=== PATIENT | male | born 1955 | race Caucasian/White ===

== ENCOUNTER 2017-08-10 17:53 | Inpatient (IN) | payer BC ==
[2017-08-10] MEDS ORDERED: ONDANSETRON 4 MG/2 ML VIAL IVP STA (18:54)
[2017-08-10] MEDS ORDERED: HYDROmorphone 1 MG/ML 1 ML SYRINGE IVP STA (18:54)
[2017-08-10] MEDS ORDERED: SODIUM CHLORIDE 0.9% 2,000 ML IV STA (18:54)
[2017-08-10] MEDS ORDERED: RX INFO: IV CONTRAST WAS GIVEN 1 EACH MISC MISCELLANE PRN (18:54)
[2017-08-10 19:16] LABS: Basophils # (A) 0.1 k/uL (0-0.2); Basophils % (A) 1 %; CH 31.9; CHCM 34.5; Eosinophils # (A) 0.3 k/uL (0-0.7); Eosinophils % (A) 2 %; HCT 43.8 % (39.0-53.0); HDW 2.52; HGB 14.9 gm/dL (13.0-17.5); Luc # (Auto) 0.17; Luc % (Auto) 2; Lymphocytes # (A) 2.4 k/uL (1.0-4.8); Lymphocytes % (A) 23 %; MCH 31.7 pg (25.0-35.0); MCHC 34.1 g/dL (31.0-37.0); MCV 92.9 fL (80.0-100.0); Mean Platelet Volume 6.5; Monocytes # (A) 0.7 k/uL (0-1.0); Monocytes % (A) 7 %; Neutrophils # (A) 6.8 k/uL (1.3-7.7); Neutrophils % (A) 65 %; RBC 4.71 m/uL (4.30-5.90); RDW 12.7 % (11.5-15.5); WBC 10.5 k/uL (3.8-10.6); WBC (Perox) 10.47
--- NOTE | 2017-08-10 19:16 | ED ---
Abdominal Pain HPI <Eldon Sherman - Last Filed: 08/10/17 19:59> - General Source: patient Mode of arrival: ambulatory Limitations: no limitations <Jacqueline Chaidez - Last Filed: 08/10/17 20:24> - General Chief Complaint: Abdominal Pain Stated Complaint: Abd Pain Time Seen by Provider: 08/10/17 18:30 - History of Present Illness Initial Comments: Is a 62-year-old male presents emergency department after being seen by his primary care provider earlier today and was told he had abnormal lab work. He' s been having some right lower quadrant abdominal pain for the past 2 days. Patient relates that he's had no nausea or vomiting. Denies any abnormal bowel movements. Denies any urinary symptoms. Patient was told that he needed to come to the emergency department due to abnormal lab values but does not know exactly what could've caused this. Patient states he is felt chilled denies any specific fevers. Denies any upper respiratory symptoms. Surgical history includes cholecystectomy. (Jacqueline Chaidez) - Related Data Home Medications Medication Instructions Recorded Confirmed Budesonide-Formot 160-4.5 Mcg 2 puff INHALATION RT-BID 04/29/14 08/10/17 [Symbicort 160-4.5 Mcg Inhaler] Albuterol Nebulized [Ventolin 2.5 mg INHALATION RT-QID PRN 12/25/15 08/10/17 Nebulized] Ibuprofen [Motrin] 800 mg PO Q8H PRN 01/25/16 08/10/17 Albuterol Inhaler [Ventolin Hfa 1 - 2 puff INHALATION RT-QID PRN 08/10/17 Inhaler] Ipratropium/Albuterol Sulfate 1 puff INHALATION RT-QID PRN 08/10/17 08/10/17 [Combivent Respimat Inhaler] Allergies Allergy/AdvReac Type Severity Reaction Status Date / Time No Known Allergies Allergy Verified 08/10/17 18:48 Review of Systems ROS Other: All systems not noted in ROS Statement are negative. <Eldon Sherman - Last Filed: 08/10/17 19:59> ROS Other: All systems not noted in ROS Statement are negative. <Jacqueline Chaidez - Last Filed: 08/10/17 20:24> ROS Statement: Those systems with pertinent positive or pertinent negative responses have been documented in the HPI. Past Medical History Past Medical History: Asthma Additional Past Medical History / Comment(s): pancreatitis History of Any Multi-Drug Resistant Organisms: None Reported Past Surgical History: Cholecystectomy, Tonsillectomy Past Anesthesia/Blood Transfusion Reactions: No Reported Reaction Past Psychological History: Depression Smoking Status: Current every day smoker Past Alcohol Use History: Occasional Past Drug Use History: None Reported - Past Family History Father Family Medical History: Cancer, Myocardial Infarction ([place]) Additional Family Medical History / Comment(s): STOMACH <Jacqueline Chaidez - Last Filed: 08/10/17 20:24> General Exam <Eldon Sherman - Last Filed: 08/10/17 19:59> Limitations: no limitations General appearance: alert, in no apparent distress Head exam: Present: atraumatic, normocephalic, normal inspection Eye exam: Present: normal appearance, PERRL, EOMI. Absent: scleral icterus, conjunctival injection, periorbital swelling ENT exam: Present: normal exam, mucous membranes moist Neck exam: Present: normal inspection. Absent: tenderness, meningismus, lymphadenopathy Respiratory exam: Present: normal lung sounds bilaterally. Absent: respiratory distress, wheezes, rales, rhonchi, stridor Cardiovascular Exam: Present: regular rate, normal rhythm, normal heart sounds. Absent: systolic murmur, diastolic murmur, rubs, gallop, clicks GI/Abdominal exam: Present: soft, tenderness (Right lower quadrant and right upper quadrant tenderness.), normal bowel sounds. Absent: distended, guarding, rebound, rigid Extremities exam: Present: normal inspection, full ROM, normal capillary refill. Absent: tenderness, pedal edema, joint swelling, calf tenderness Back exam: Present: normal inspection Neurological exam: Present: alert, oriented X3, CN II-XII intact Psychiatric exam: Present: normal affect, normal mood Skin exam: Present: warm, dry, intact, normal color. Absent: rash <Jacqueline Chaidez - Last Filed: 08/10/17 20:24> - General Exam Comments Initial Comments: Pleasant 62-year-old male. No acute distress. (Jacqueline Chaidez) Medical Decision Making - Lab Data Result diagrams: 08/10/17 19:00 08/10/17 19:00 <Eldon Sherman - Last Filed: 08/10/17 19:59> - Lab Data Result diagrams: 08/10/17 19:00 08/10/17 19:00 - Radiology Data Radiology results: report reviewed <Jacqueline Chaidez - Last Filed: 08/10/17 20:24> - Medical Decision Making 62-year-old male with a complaint of abdominal pain. Labs drawn and sent to the hospital from the office shows an elevated lipase at 3126. Amylase here is 397. BUN/creatinine GFR normal. Glucose 94. White count 10. Liver enzymes normal. Patient had a CAT scan done today final impression per radiologist is clearing of minimal inflammatory changes of the pancreatic head as noted on previous study. Patient be admitted to the hospital for evaluation for acute pancreatitis. I spoke with Vane taking call for Dr. Hull. Dr. Sherman (Eldon Sherman) [id number] male presents is of abdominal pain. Had lab work done earlier today and was told he had elevated liver but does not know exactly what. Patient's amylase and lipase are simply elevated. Lipase at 4500 and amylase 397. Patient kidney function and liver function are normal. He does have history of cholecystectomy. Denies any specific alcohol use, last beer was 2 weeks ago. Patient did have a CAT scan with contrast due to the right lower quadrant pain. The CAT scan was reviewed and negative for any significant acute process. Discussed case with Dr. Sherman. Patient admitted for acute pancreatitis given IV hydration, pain medicine. Patient will remain nothing by mouth. (Jacqueline Chaidez) - Lab Data Lab Results 08/10/17 08/10/17 08/10/17 Range/Units 19:00 19:00 19:00 WBC 10.5 (3.8-10.6) k/uL RBC 4.71 (4.30-5.90) m/uL Hgb 14.9 (13.0-17.5) gm/dL Hct 43.8 (39.0-53.0) % MCV 92.9 (80.0-100.0) fL MCH 31.7 (25.0-35.0) pg MCHC 34.1 (31.0-37.0) g/dL RDW 12.7 (11.5-15.5) % Plt Count 255 (150-450) k/uL Neutrophils % 65 % Lymphocytes % 23 % Monocytes % 7 % Eosinophils % 2 % Basophils % 1 % Neutrophils # 6.8 (1.3-7.7) k/uL Lymphocytes # 2.4 (1.0-4.8) k/uL Monocytes # 0.7 (0-1.0) k/uL Eosinophils # 0.3 (0-0.7) k/uL Basophils # 0.1 (0-0.2) k/uL PT (9.0-12.0) sec INR (<1.2) APTT (22.0-30.0) sec Sodium 138 (137-145) mmol/L Potassium 4.3 (3.5-5.1) mmol/L Chloride 106 (98-107) mmol/L Carbon Dioxide 23 (22-30) mmol/L Anion Gap 9 mmol/L BUN 18 (9-20) mg/dL Creatinine 0.90 (0.66-1.25) mg/dL Est GFR (MDRD) Af Amer >60 (>60 ml/min/1.73 sqM) Est GFR (MDRD) Non-Af >60 (>60 ml/min/1.73 sqM) Glucose 94 (74-99) mg/dL Plasma Lactic Acid Gerry 0.7 (0.7-2.0) mmol/L Calcium 9.2 (8.4-10.2) mg/dL Total Bilirubin 0.7 (0.2-1.3) mg/dL AST 20 (17-59) U/L ALT 33 (21-72) U/L Alkaline Phosphatase 71 (38-126) U/L Total Protein 6.1 L (6.3-8.2) g/dL Albumin 3.7 (3.5-5.0) g/dL Amylase 397 H* (30-110) U/L Lipase 4500 H (23-300) U/L Blood Type Blood Type Recheck Antibody Screen Spec Expiration Date 08/10/17 08/10/17 Range/Units 19:00 19:00 WBC (3.8-10.6) k/uL RBC (4.30-5.90) m/uL Hgb (13.0-17.5) gm/dL Hct (39.0-53.0) % MCV (80.0-100.0) fL MCH (25.0-35.0) pg MCHC (31.0-37.0) g/dL RDW (11.5-15.5) % Plt Count (150-450) k/uL Neutrophils % % Lymphocytes % % Monocytes % % Eosinophils % % Basophils % % Neutrophils # (1.3-7.7) k/uL Lymphocytes # (1.0-4.8) k/uL Monocytes # (0-1.0) k/uL Eosinophils # (0-0.7) k/uL Basophils # (0-0.2) k/uL PT 10.8 (9.0-12.0) sec INR 1.1 (<1.2) APTT 26.1 (22.0-30.0) sec Sodium (137-145) mmol/L Potassium (3.5-5.1) mmol/L Chloride (98-107) mmol/L Carbon Dioxide (22-30) mmol/L Anion Gap mmol/L BUN (9-20) mg/dL Creatinine (0.66-1.25) mg/dL Est GFR (MDRD) Af Amer (>60 ml/min/1.73 sqM) Est GFR (MDRD) Non-Af (>60 ml/min/1.73 sqM) Glucose (74-99) mg/dL Plasma Lactic Acid Gerry (0.7-2.0) mmol/L Calcium (8.4-10.2) mg/dL Total Bilirubin (0.2-1.3) mg/dL AST (17-59) U/L ALT (21-72) U/L Alkaline Phosphatase (38-126) U/L Total Protein (6.3-8.2) g/dL Albumin (3.5-5.0) g/dL Amylase (30-110) U/L Lipase (23-300) U/L Blood Type O Positive Blood Type Recheck No Antibody Screen NEGATIVE Spec Expiration Date 08/13/2017 - 2299 Disposition <Eldon Sherman - Last Filed: 08/10/17 19:59> Time of Disposition: 20:24 <Jacqueline Chaidez - Last Filed: 08/10/17 20:24> Clinical Impression: Pancreatitis Disposition: ADMITTED IP TO THIS [facility] Condition: Stable Referrals: Gio Rose DO [Primary Care Provider] - 1-2 days
[2017-08-10 19:27] LABS: ALT 33 U/L (21-72); AST 20 U/L (17-59); Alkaline Phosphatase 71 U/L (38-126); Anion Gap 9 mmol/L; Blood Urea Nitrogen 18 mg/dL (9-20); Calcium 9.2 mg/dL (8.4-10.2); Carbon Dioxide 23 mmol/L (22-30); Chloride 106 mmol/L (98-107); Glucose 94 mg/dL (74-99); Non-African American GFR(MDRD) >60 (>60 ml/min/1.73 sqM); Potassium 4.3 mmol/L (3.5-5.1); Sodium 138 mmol/L (137-145); Total Bilirubin 0.7 mg/dL (0.2-1.3); Total Protein 6.1 g/dL (6.3-8.2)
[2017-08-10 19:36] LABS: INR 1.1 (<1.2); Partial Thromboplastin Time 26.1 sec (22.0-30.0); Prothrombin Time 10.8 sec (9.0-12.0)
[2017-08-10 19:44] LABS: Amylase 397 U/L (30-110)
--- NOTE | 2017-08-10 19:52 | CT ---
EXAMINATION TYPE: CT abdomen pelvis w con DATE OF EXAM: 08/10/2017 COMPARISON: 11/22/2014 HISTORY: Right sided pain CT DLP: 1575.3 mGycm Automated exposure control for dose reduction was used. TECHNIQUE: Helical acquisition of images was performed from the lung bases through the pelvis. CONTRAST: Performed without Oral Contrast and with IV Contrast, patient injected with 100 mL of Omnipaque 300. FINDINGS: Lung bases are clear. There is no pleural effusion. There is a small hiatal hernia. Liver spleen pancreas appear normal. Bile ducts are not dilated. There are clips from cholecystectomy . There is no adrenal mass. Kidneys show satisfactory contrast opacification. There is no hydronephrosi s. There is no retroperitoneal adenopathy. I see no intestinal wall thickening. There are no dilated loops. Bladder distends smoothly. There is no sign of a pelvic mass. There is no sign of appendicitis. The bony structures show some mild biconc ave changes in the lumbar vertebra. This is consistent with osteomalacia..: IMPRESSION: NO SIGN OF ACUTE ABDOMEN AND PELVIS. THERE IS CLEARING OF MINIMAL INFLAMMATORY CHANGES AT THE PANCREA TIC HEAD COMPARED TO OLD EXAM.
[2017-08-10] MEDS ORDERED: IBUPROFEN 400 MG TAB PO PRN (20:25)
[2017-08-10] MEDS ORDERED: NALOXONE 0.4 MG/ML 1 ML VIAL IV PRN (20:25)
[2017-08-10] MEDS ORDERED: KETOROLAC 30 MG/ML 1 ML VIAL IVP PRN (20:25)
[2017-08-10] MEDS ORDERED: ACETAMINOPHEN TAB 325 MG TAB PO PRN (20:25)
[2017-08-10] MEDS ORDERED: ALBUTEROL NEBULIZED 2.5 MG/3 ML INHALATION PRN (20:26)
[2017-08-10] MEDS: SODIUM CHLORIDE 0.9% 1,000 ML IV SCH (20:46)
[2017-08-10 21:21] LABS: Appearance,Urine Clear (Clear); Bilirubin,Urine Negative (Negative); Glucose,Urine (UA) Negative (Negative); Ketones,Urine Negative (Negative); Leukocyte Esterase,Urine Negative (Negative); Nitrite,Urine Negative (Negative); PH, Urine 6.5 (5.0-8.0); Protein,Urine Negative (Negative); Specific Gravity,Urine 1.038 (1.001-1.035); UA Billing (MACRO vs. MICRO) CHEM; Urobilinogen,Urine <2.0 mg/dL (<2.0)
[2017-08-10 21:32] VITALS: BMI 36.2
[2017-08-10] MEDS: HYDROmorphone 1 MG/ML 1 ML SYRINGE IV PRN (22:59)
[2017-08-11] MEDS: HYDROmorphone 1 MG/ML 1 ML SYRINGE IV PRN ×5 (02:56→20:26)
[2017-08-11] MEDS: SODIUM CHLORIDE 0.9% 1,000 ML IV SCH ×3 (04:50→13:52)
[2017-08-11] MEDS: SYMBICORT INHALATION SCH ×2 (07:36→20:26)
[2017-08-11] MEDS: PANTOPRAZOLE 40 MG/10 ML VIAL IV SCH (07:43)
[2017-08-11] MEDS ORDERED: SYMBICORT 160-4.5 MCG INHALER INHALATION SCH (08:00)
--- NOTE | 2017-08-11 11:04 | P.HPIM ---
History of Present Illness 62-year-old gentleman came in with comments of epigastric abdominal pain with nausea vomiting going on for 2 days found to have a hepatitis with highly elevated lipase of 2000 and patient is presently nothing by mouth and IV fluids at 11/27/2019 5 mL per hour. Patient is not an alcoholic, patient had a cholecystectomy in the past. Patient denied any fever chills dysuria, patient continues to have abdominal pain patient isn't in the leg which will be discontinued and patient is on Protonix to be continued. Patient will remain nothing by mouth will often a chest x-ray because of his low saturations to make sure there is no pulmonary edema concern that he is on 1 25 mL of normal saline saline Review of Systems REVIEW OF SYSTEMS: CONSTITUTIONAL: No fever, no malaise, no fatigue. HEENT: No recent visual problems or hearing problems. Denied any sore throat. CARDIOVASCULAR: No chest pain, orthopnea, PND, no palpitations, no syncope. PULMONARY: No shortness of breath, no cough, no hemoptysis. GASTROINTESTINAL: As described in HPI NEUROLOGICAL: No headaches, no weakness, no numbness. HEMATOLOGICAL: Denies any bleeding or petechiae. GENITOURINARY: Denies any burning micturition, frequency, or urgency. MUSCULOSKELETAL/RHEUMATOLOGICAL: Denies any joint pain, swelling, or any muscle pain. ENDOCRINE: Denies any polyuria or polydipsia. The rest of the 14-point review of systems is negative. Past Medical History Past Medical History: Asthma Additional Past Medical History / Comment(s): pancreatitis History of Any Multi-Drug Resistant Organisms: None Reported Past Surgical History: Cholecystectomy, Tonsillectomy Past Anesthesia/Blood Transfusion Reactions: No Reported Reaction Past Psychological History: Depression Additional Psychological History / Comment(s): STATES TAKES NO MEDS Smoking Status: Current every day smoker Past Alcohol Use History: Occasional Additional Past Alcohol Use History / Comment(s): STARTED SMOKING AT AGE 17, ( 1971), SMOKES 1/2-1PPD Past Drug Use History: None Reported - Past Family History Father Family Medical History: Cancer, Myocardial Infarction ([place]) Additional Family Medical History / Comment(s): STOMACH Medications and Allergies Home Medications Medication Instructions Recorded Confirmed Type Budesonide-Formot 160-4.5 Mcg 2 puff INHALATION RT-BID 04/29/14 08/10/17 History [Symbicort 160-4.5 Mcg Inhaler] Albuterol Nebulized [Ventolin 2.5 mg INHALATION RT-QID PRN 12/25/15 08/10/17 History Nebulized] Ibuprofen [Motrin] 800 mg PO Q8H PRN 01/25/16 08/10/17 History Albuterol Inhaler [Ventolin Hfa 1 - 2 puff INHALATION RT-QID PRN 08/10/17 History Inhaler] Ipratropium/Albuterol Sulfate 1 puff INHALATION RT-QID PRN 08/10/17 08/10/17 History [Combivent Respimat Inhaler] Allergies Allergy/AdvReac Type Severity Reaction Status Date / Time No Known Allergies Allergy Verified 08/10/17 18:48 Physical Exam Vitals: Vital Signs Temp Pulse Pulse Resp BP BP Pulse Ox 08/11/17 07:00 97.5 F L 61 14 121/75 91 L 08/11/17 00:00 61 18 08/10/17 21:33 98.1 F 61 18 139/89 91 L 08/10/17 20:52 61 16 140/85 96 08/10/17 19:16 66 16 95 08/10/17 17:56 98.3 F 73 18 145/87 100 Intake and Output 08/10/17 08/11/17 08/11/17 22:59 06:59 14:59 Intake Total 2118 840 Balance 2118 840 Intake: Intake, IV Titration 2117 840 Amount Sodium Chloride 0.9% 1, 120 840 000 ml @ 120 mls/hr IV . Q8H20M DANIEL Rx#:[id number] Sodium Chloride 0.9% 2, 1998 000 ml @ 999 mls/hr IV . Q2H1M STA Rx#:[id number] Other: Voiding Method Toilet Toilet # Voids 2 2 Weight 117.934 kg PHYSICAL EXAMINATION: GENERAL: The patient is alert and oriented x3, not in any acute distress. Well developed, well nourished. HEENT: Pupils are round and equally reacting to light. EOMI. No scleral icterus. No conjunctival pallor. Normocephalic, atraumatic. No pharyngeal erythema. No thyromegaly. CARDIOVASCULAR: S1 and S2 present. No murmurs, rubs, or gallops. PULMONARY: Chest is clear to auscultation, no wheezing or crackles. ABDOMEN: Soft, minimal epigastric abdominal tenderness, nondistended, normoactive bowel sounds. No palpable organomegaly. MUSCULOSKELETAL: No joint swelling or deformity. EXTREMITIES: No cyanosis, clubbing, or pedal edema. NEUROLOGICAL: Gross neurological examination did not reveal any focal deficits. SKIN: No rashes. Results CBC & Chem 7: 08/10/17 19:00 08/10/17 19:00 Labs: Abnormal Lab Results - Last 24 Hours (Table) 08/10/17 08/10/17 Range/Units 19:00 21:03 Total Protein 6.1 L (6.3-8.2) g/dL Amylase 397 H* (30-110) U/L Lipase 4500 H (23-300) U/L Ur Specific [facility] 1.038 H (1.001-1.035) Thrombosis Risk Factor Assmnt - Choose All That Apply Any of the Below Risk Factors Present?: No Other Risk Factors: Yes Each Risk Factor Represents 2 Points: Age 61-74 years Other congenital or acquired thrombophilia - If yes, enter type in comment: No Thrombosis Risk Factor Assessment Total Risk Factor Score: 2 Thrombosis Risk Factor Assessment Level: Low Risk Assessment and Plan Plan: #1 acute pancreatitis: Patient will be continued on IV fluids, continue his Protonix pain management and patient will remain nothing by mouth. Etiology of her pancreatitis is unknown at this point of time will obtain lipid panel tomorrow to evaluate for Hyper triglyceridemia #2 chronic intermittent asthma: Without any acute exacerbation. Continue with inhalational steroids and the albuterol ipratropium #3 obesity: Counseling was provided
--- NOTE | 2017-08-11 13:01 | XR ---
EXAMINATION TYPE: XR chest 2V DATE OF EXAM: 08/11/2017 COMPARISON: 07/18/2016 INDICATION: Short of breath history of COPD TECHNIQUE: Frontal and lateral views of the chest are obtained. FINDINGS: The heart size is normal. The pulmonary vasculature is normal. The lungs are clear. There is some hyperinflation present. IMPRESSION: 1. No acute pulmonary process. 2. COPD
[2017-08-12] MEDS: IPRATROPIUM-ALBUTEROL 3 ML NEB INHALATION PRN ×2 (00:46→19:18)
[2017-08-12] MEDS: HYDROmorphone 1 MG/ML 1 ML SYRINGE IV PRN ×4 (00:49→09:18)
[2017-08-12] MEDS: SODIUM CHLORIDE 0.9% 1,000 ML IV SCH ×3 (00:50→12:36)
[2017-08-12] MEDS: ONDANSETRON 4 MG/2 ML VIAL IVP PRN ×2 (00:54→15:43)
[2017-08-12 06:56] LABS: CH 32.3; CHCM 34.5; HCT 41.7 % (39.0-53.0); HDW 2.47; MCH 31.6 pg (25.0-35.0); MCHC 33.7 g/dL (31.0-37.0); MCV 93.9 fL (80.0-100.0); RBC 4.44 m/uL (4.30-5.90); RDW 13.2 % (11.5-15.5); WBC 13.5 k/uL (3.8-10.6)
[2017-08-12 07:07] LABS: ALT 29 U/L (21-72); AST 20 U/L (17-59); Alkaline Phosphatase 68 U/L (38-126); Anion Gap 9 mmol/L; Blood Urea Nitrogen 14 mg/dL (9-20); Calcium 8.2 mg/dL (8.4-10.2); Carbon Dioxide 24 mmol/L (22-30); Chloride 102 mmol/L (98-107); Cholesterol 128 mg/dL (<200); Glucose 75 mg/dL (74-99); HDL Cholesterol 51 mg/dL (40-60); Non-African American GFR(MDRD) >60 (>60 ml/min/1.73 sqM); Potassium 4.5 mmol/L (3.5-5.1); Sodium 135 mmol/L (137-145); Total Bilirubin 0.9 mg/dL (0.2-1.3); Total Protein 5.8 g/dL (6.3-8.2)
[2017-08-12] MEDS: SYMBICORT INHALATION SCH ×3 (07:18→19:41)
[2017-08-12] MEDS: PANTOPRAZOLE 40 MG/10 ML VIAL IV SCH (08:01)
[2017-08-12 08:26] LABS: Amylase 65 U/L (30-110)
[2017-08-12] MEDS: HYDROcodone/APAP 7.5-325MG 1 EACH TAB PO PRN ×2 (11:25→17:05)
--- NOTE | 2017-08-12 11:58 | P.PN ---
Subjective she was admitted for etiopathic pancreatitis. Although she is he is still complaining of abdominal pain largely resolved will discontinue Dilaudid and patient was started on Morgan start him on diet clear liquid and advance as tolerated. Patient and nausea patient denied dysuria. Patient denied any chest pain cough shortness of breath. Objective - Vital Signs Vital signs: Vital Signs Temp 98.2 F 08/12/17 07:00 Pulse 70 08/12/17 08:00 Resp 20 08/12/17 08:00 BP 152/86 08/12/17 07:00 Pulse Ox 92 L 08/12/17 07:00 Intake & Output 08/11/17 08/12/17 08/12/17 18:59 06:59 18:59 Intake Total 1000 Balance 1000 Intake: IV 1000 Sodium Chloride 0.9% 1, 1000 000 ml @ 125 mls/hr IV . Q8H REPLACED BY [facility] Rx#:[id number] Other: Voiding Method Toilet Toilet Toilet # Voids 2 - Exam PHYSICAL EXAMINATION: GENERAL: The patient is alert and oriented x3, not in any acute distress. Well developed, well nourished. HEENT: Pupils are round and equally reacting to light. EOMI. No scleral icterus. No conjunctival pallor. Normocephalic, atraumatic. No pharyngeal erythema. No thyromegaly. CARDIOVASCULAR: S1 and S2 present. No murmurs, rubs, or gallops. PULMONARY: Chest is clear to auscultation, no wheezing or crackles. ABDOMEN: Soft, nontender, nondistended, normoactive bowel sounds. No palpable organomegaly. MUSCULOSKELETAL: No joint swelling or deformity. EXTREMITIES: No cyanosis, clubbing, or pedal edema. NEUROLOGICAL: Gross neurological examination did not reveal any focal deficits. SKIN: No rashes. - Labs CBC & Chem 7: 08/12/17 06:38 08/12/17 06:38 Labs: Abnormal Lab Results - Last 24 Hours (Table) 08/12/17 08/12/17 Range/Units 06:38 06:38 WBC 13.5 H (3.8-10.6) k/uL Sodium 135 L (137-145) mmol/L Calcium 8.2 L (8.4-10.2) mg/dL Total Protein 5.8 L (6.3-8.2) g/dL Albumin 3.4 L (3.5-5.0) g/dL Microbiology - Last 24 Hours (Table) 08/10/17 19:00 Blood Culture - Preliminary Blood No Growth after 24 hours Assessment and Plan Plan: #1 acute pancreatitis: Patient will be continued on IV fluids, continue his Protonix , advance diet as tolerated lipase levels have come down Etiology of her pancreatitis is unknown at this point of time will obtain lipid panel did not show any hypertriglyceridemia #2 chronic intermittent asthma: Continue with inhalational steroids and the albuterol ipratropium patient may have minimal exacerbation, will not need any systemic steroids at this time. #3 obesity: Counseling was provided
[2017-08-12] MEDS ORDERED: HYDROmorphone 1 MG/ML 1 ML SYRINGE IVP STA (20:24)
[2017-08-13] MEDS: HYDROcodone/APAP 7.5-325MG 1 EACH TAB PO PRN ×2 (01:19→07:29)
[2017-08-13] MEDS: SODIUM CHLORIDE 0.9% 1,000 ML IV SCH ×3 (01:26→13:56)
[2017-08-13] MEDS: PANTOPRAZOLE 40 MG/10 ML VIAL IV SCH (07:31)
[2017-08-13] MEDS: SYMBICORT INHALATION SCH ×2 (08:32→19:12)
[2017-08-13] MEDS ORDERED: HYDROcodone/APAP 7.5-325MG 1 EACH TAB PO STA (10:02)
[2017-08-13] MEDS ORDERED: HYDROcodone/APAP 7.5-325MG 1 EACH TAB PO PRN (10:03)
[2017-08-13] MEDS: MORPHINE SULFATE 4 MG/ML SYRINGE IVP PRN ×4 (10:26→22:12)
--- NOTE | 2017-08-13 11:36 | P.PN ---
Subjective she was admitted for etiopathic pancreatitis. Although she is he is still complaining of abdominal pain largely resolved will discontinue Dilaudid and patient was started on Jal start him on diet clear liquid and advance as tolerated. 08/13/2017 Patient is still having abdominal pain will make him nothing by mouth his lipase has come down we'll repeat lipase tomorrow and the patient will be started on morphine and. Basis for abdominal pain. Patient and nausea patient denied dysuria. Patient denied any chest pain cough shortness of breath. Objective - Vital Signs Vital signs: Vital Signs Temp 97.2 F L 08/13/17 07:27 Pulse 72 08/13/17 08:00 Resp 20 08/13/17 08:00 BP 143/97 08/13/17 07:27 Pulse Ox 93 L 08/13/17 07:27 Intake & Output 08/12/17 08/13/17 08/13/17 18:59 06:59 18:59 Intake Total 590 Output Total 600 Balance -10 Weight 117.934 kg 117.934 kg Intake: Oral 590 Output: Urine 600 Other: Voiding Method Toilet Toilet Toilet # Voids 2 2 - Exam PHYSICAL EXAMINATION: GENERAL: The patient is alert and oriented x3, not in any acute distress. Well developed, well nourished. HEENT: Pupils are round and equally reacting to light. EOMI. No scleral icterus. No conjunctival pallor. Normocephalic, atraumatic. No pharyngeal erythema. No thyromegaly. CARDIOVASCULAR: S1 and S2 present. No murmurs, rubs, or gallops. PULMONARY: Chest is clear to auscultation, no wheezing or crackles. ABDOMEN: Soft, nontender, nondistended, normoactive bowel sounds. No palpable organomegaly. MUSCULOSKELETAL: No joint swelling or deformity. EXTREMITIES: No cyanosis, clubbing, or pedal edema. NEUROLOGICAL: Gross neurological examination did not reveal any focal deficits. SKIN: No rashes. - Labs CBC & Chem 7: 08/12/17 06:38 08/12/17 06:38 Labs: Microbiology - Last 24 Hours (Table) 08/10/17 19:00 Blood Culture - Preliminary Blood No Growth after 48 hours Assessment and Plan Plan: #1 acute pancreatitis: Patient will be continued on IV fluids, continue his Protonix , patient can you to have symptoms of abdominal pain because of which we'll repeat lipase tomorrow and patient will be nothing by mouth and will be started on morphine on when necessary basis. #2 chronic intermittent asthma: Continue with inhalational steroids and the albuterol ipratropium patient may have minimal exacerbation, will not need any systemic steroids at this time. #3 obesity: Counseling was provided
[2017-08-13] MEDS: ONDANSETRON 4 MG/2 ML VIAL IVP PRN (17:53)
[2017-08-14] MEDS: SODIUM CHLORIDE 0.9% 1,000 ML IV SCH ×3 (04:17→16:27)
[2017-08-14] MEDS: MORPHINE SULFATE 4 MG/ML SYRINGE IVP PRN (07:02)
[2017-08-14 07:11] LABS: CH 31.7; CHCM 34.4; HCT 40.6 % (39.0-53.0); HDW 2.61; MCH 31.8 pg (25.0-35.0); MCHC 34.3 g/dL (31.0-37.0); MCV 92.6 fL (80.0-100.0); Mean Platelet Volume 6.6; RBC 4.39 m/uL (4.30-5.90); RDW 12.5 % (11.5-15.5); WBC 8.9 k/uL (3.8-10.6)
[2017-08-14 07:20] LABS: ALT 29 U/L (21-72); AST 18 U/L (17-59); Alkaline Phosphatase 69 U/L (38-126); Anion Gap 9 mmol/L; Blood Urea Nitrogen 9 mg/dL (9-20); Calcium 8.8 mg/dL (8.4-10.2); Carbon Dioxide 23 mmol/L (22-30); Chloride 105 mmol/L (98-107); Glucose 89 mg/dL (74-99); Non-African American GFR(MDRD) >60 (>60 ml/min/1.73 sqM); Potassium 4.1 mmol/L (3.5-5.1); Sodium 137 mmol/L (137-145); Total Bilirubin 0.4 mg/dL (0.2-1.3); Total Protein 5.9 g/dL (6.3-8.2)
[2017-08-14] MEDS: IPRATROPIUM-ALBUTEROL 3 ML NEB INHALATION PRN (07:29)
[2017-08-14] MEDS: SYMBICORT INHALATION SCH ×2 (07:29→19:57)
[2017-08-14 07:44] VITALS: RESP 18
[2017-08-14] MEDS: PANTOPRAZOLE 40 MG/10 ML VIAL IV SCH (08:26)
--- NOTE | 2017-08-14 13:43 | P.DS ---
Providers Date of admission: 08/10/17 20:50 Expected date of discharge: 08/14/17 Attending physician: Princess Goncalves Primary care physician: Gio Rose [facility] Hospital Course: Final Diagnoses: #1 acute pancreatitis, idiopathic. #2 chronic intermittent asthma #3 obesity, BMI 36.3 Hospital course: This a 62-year-old gentleman admitted with idiopathic pancreatitis. Maintained on IV fluid hydration, PPI, initially NPO, followed by slow diet advancement. Lipase normalized. Significant clinical improvement. Patient is being discharged home in a stable condition with guarded prognosis. The impression and plan of care has been dictated as directed as a scribe. : I performed a H&P examination of this patient and discussed the same with the dictator. I agree with the dictator's note. Any additional findings/opinions/ etc. will be noted. Patient Condition at Discharge: Stable Plan - Discharge Summary New Discharge Prescriptions: New HYDROcodone/APAP 7.5-325MG [Viola 7.5-325] 2 each PO Q6H PRN #20 tab PRN Reason: Moderate Pain Omeprazole [PriLOSEC] 20 mg PO AC-BID #60 cap Continue Budesonide-Formot 160-4.5 Mcg [Symbicort 160-4.5 Mcg Inhaler] 2 puff INHALATION RT-BID Albuterol Nebulized [Ventolin Nebulized] 2.5 mg INHALATION RT-QID PRN PRN Reason: Shortness Of Breath Ipratropium/Albuterol Sulfate [Combivent Respimat Inhaler] 1 puff INHALATION RT-QID PRN PRN Reason: Shortness Of Breath Albuterol Inhaler [Ventolin Hfa Inhaler] 1 - 2 puff INHALATION RT-QID PRN PRN Reason: Shortness Of Breath Discontinued Ibuprofen [Motrin] 800 mg PO Q8H PRN PRN Reason: Pain Discharge Medication List Budesonide-Formot 160-4.5 Mcg [Symbicort 160-4.5 Mcg Inhaler] 2 puff INHALATION RT-BID 04/29/14 [History] Albuterol Nebulized [Ventolin Nebulized] 2.5 mg INHALATION RT-QID PRN 12/25/15 [ History] Albuterol Inhaler [Ventolin Hfa Inhaler] 1 - 2 puff INHALATION RT-QID PRN [History] Ipratropium/Albuterol Sulfate [Combivent Respimat Inhaler] 1 puff INHALATION RT- QID PRN 08/10/17 [History] HYDROcodone/APAP 7.5-325MG [Viola 7.5-325] 2 each PO Q6H PRN #20 tab 08/14/17 [ Rx] Omeprazole [PriLOSEC] 20 mg PO AC-BID #60 cap 08/14/17 [Rx] Follow up Appointment(s)/Referral(s): Gio Rose DO [Primary Care Provider] - 1-2 days
[2017-08-14 15:59] VITALS: BP 128/88; PULSE 63; TEMP 98.1
== END 2017-08-14 20:05 | disposition home or self-care (01) | DRG 440 ==
LOC: EC 17:53 → 5MS5E 20:50
PROVIDERS: ADMIT Internal Medicine; ATTEND Internal Medicine
DX: K85.90 Acute pancreatitis without necrosis or infection, unspecified (principal); F32.9 Major depressive disorder, single episode, unspecified; J45.20 Mild intermittent asthma, uncomplicated; E66.9 Obesity, unspecified; F17.200 Nicotine dependence, unspecified, uncomplicated; Z90.49 Acquired absence of other specified parts of digestive tract; Z82.49 Family history of ischemic heart disease and other diseases of the circulatory system; Z79.51 Long term (current) use of inhaled steroids; Z68.36 Body mass index [BMI] 36.0-36.9, adult; Z71.3 Dietary counseling and surveillance; Z79.1 Long term (current) use of non-steroidal anti-inflammatories (NSAID); Z79.899 Other long term (current) drug therapy; Z80.0 Family history of malignant neoplasm of digestive organs; Z87.19 Personal history of other diseases of the digestive system
CPT/HCPCS: 36415; 71020; 74177; 80053; 80061; 80320; 81003; 82150; 83605; 83690; 85025; 85027; 85610; 85730; 86850; 86900; 86901; 87040; 94640; 96361; 96374; 96375; 99285

== ENCOUNTER → 2017-08-10 | Outpatient (CLI) | payer BC ==
--- NOTE | 2017-08-10 11:36 | XR ---
EXAMINATION TYPE: XR abdomen 2V DATE OF EXAM: 08/10/2017 CLINICAL HISTORY: Nausea, vomiting, and right lower quadrant pain TECHNIQUE: Supine and upright views of the abdomen are obtained. COMPARISON: CT abdomen and pelvis November 22, 2014. FINDINGS: Scattered gas is seen in non-distended stomach and small bowel loops. Gas and fecal mater ial is seen in non-distended colon. No suspicious air-fluid levels are present. Cholecystectomy clips are redemonstrated There is no visceromegaly, pneumoperitoneum, or abnormal calcification appreciat ed. The lung bases are clear. Mild to moderate height loss and spurring L2 and L3 vertebral body lev el is redemonstrated. IMPRESSION: Overall nonobstructive bowel gas pattern.
[2017-08-10 15:45] LABS: Basophils # (A) 0.1 k/uL (0-0.2); Basophils % (A) 1 %; CH 32.5; CHCM 33.8; Eosinophils # (A) 0.2 k/uL (0-0.7); Eosinophils % (A) 2 %; HCT 47.7 % (39.0-53.0); HDW 2.46; HGB 15.5 gm/dL (13.0-17.5); Luc # (Auto) 0.13; Luc % (Auto) 1; Lymphocytes # (A) 2.1 k/uL (1.0-4.8); Lymphocytes % (A) 19 %; MCH 31.4 pg (25.0-35.0); MCHC 32.5 g/dL (31.0-37.0); MCV 96.6 fL (80.0-100.0); Mean Platelet Volume 7.8; Monocytes # (A) 0.7 k/uL (0-1.0); Monocytes % (A) 6 %; Neutrophils # (A) 8.1 k/uL (1.3-7.7); Neutrophils % (A) 72 %; RBC 4.94 m/uL (4.30-5.90); RDW 13.7 % (11.5-15.5); WBC 11.3 k/uL (3.8-10.6); WBC (Perox) 11.53
[2017-08-10 16:01] LABS: ALT 29 U/L (21-72); AST 22 U/L (17-59); Alkaline Phosphatase 77 U/L (38-126); Anion Gap 8 mmol/L; Blood Urea Nitrogen 16 mg/dL (9-20); Calcium 9.2 mg/dL (8.4-10.2); Carbon Dioxide 27 mmol/L (22-30); Chloride 103 mmol/L (98-107); Glucose 90 mg/dL (74-99); Non-African American GFR(MDRD) >60 (>60 ml/min/1.73 sqM); Potassium 4.9 mmol/L (3.5-5.1); Sodium 138 mmol/L (137-145); Total Bilirubin 0.6 mg/dL (0.2-1.3); Total Protein 6.7 g/dL (6.3-8.2)
[2017-08-10 16:13] LABS: Amylase 317 U/L (30-110)
== END | disposition home or self-care (01) ==
LOC: RADXRYALE 11:15
PROVIDERS: ATTEND Physician Assistant Medical
DX: R14.0 Abdominal distension (gaseous) (principal); R11.2 Nausea with vomiting, unspecified; R10.813 Right lower quadrant abdominal tenderness
CPT/HCPCS: 74020; 80053; 82150; 83690; 85025

== ENCOUNTER → 2020-05-12 | Outpatient (CLI) | payer BC ==
--- NOTE | 2020-05-12 15:36 | XR ---
EXAMINATION TYPE: XR lumbosacral spine min 4V DATE OF EXAM: 05/12/2020 CLINICAL HISTORY: pain COMPARISON: NONE TECHNIQUE: Frontal, lateral, and oblique images of the lumbar spine are obtained. FINDINGS: There are 5 lumbar type vertebral bodies identified. Chronic appearing loss of height in volving the superior endplate of L2 and L3. Mild scattered degenerative disc space narrowing with spo ndylosis and facet joint arthropathy. Normal alignment. The overlying soft tissue appears unremarka ble. IMPRESSION: As above
== END | disposition home or self-care (01) ==
LOC: RADXRYALE 15:06
PROVIDERS: ATTEND Physician Assistant
DX: M48.07 Spinal stenosis, lumbosacral region (principal); M47.897 Other spondylosis, lumbosacral region
CPT/HCPCS: 72110

== ENCOUNTER → 2020-09-22 | Outpatient (CLI) | payer BC ==
--- NOTE | 2020-09-23 11:24 | XR ---
EXAMINATION TYPE: XR chest 2V DATE OF EXAM: 09/22/2020 COMPARISON: 01/01/2018 INDICATION: COPD TECHNIQUE: Frontal and lateral views of the chest are obtained. FINDINGS: The heart size is normal. The pulmonary vasculature is normal. The lungs are clear. There is hyperinflation flattening the diaphragms compatible COPD. IMPRESSION: 1. COPD. 2. No acute pulmonary process.
== END | disposition home or self-care (01) ==
LOC: RADXRYALE 16:32
PROVIDERS: ATTEND Family Medicine
DX: J44.9 Chronic obstructive pulmonary disease, unspecified (principal)
CPT/HCPCS: 71046

== ENCOUNTER → 2023-09-01 | Outpatient (CLI) | payer MEDICARE, OTHER ==
--- NOTE | 2023-09-01 13:44 | XR ---
EXAMINATION TYPE: XR ribs RT w pa chest xray DATE OF EXAM: 09/01/2023 COMPARISON: NONE HISTORY: Pain TECHNIQUE: Single view of the chest 4 views of the ribs are submitted. FINDINGS: The lungs are clear. No Evidence for pneumothorax. No evidence for focal contusion. Medi astinal structures are midline. Evaluation of the ribs fails to demonstrate evidence for displaced r ib fracture or secondary sign of rib fracture. IMPRESSION: Negative study
== END | disposition home or self-care (01) ==
LOC: RADXRYALE 13:21
PROVIDERS: ATTEND Physician Assistant
DX: R06.02 Shortness of breath (principal); R07.82 Intercostal pain; S29.9XXA Unspecified injury of thorax, initial encounter

== ENCOUNTER → 2023-09-19 | Outpatient (CLI) | payer MEDICARE, OTHER ==
--- NOTE | 2023-09-20 22:41 | XR ---
EXAMINATION TYPE: XR chest 2V DATE OF EXAM: 09/19/2023 COMPARISON: 09/19/2023 INDICATION: Short of breath intercostal pain TECHNIQUE: Frontal and lateral views of the chest are obtained. FINDINGS: The heart size is normal. The pulmonary vasculature is normal. The lungs are clear. There is hyperinflation, the diaphragms compatible with COPD. IMPRESSION: 1. No acute pulmonary process. 2. COPD
--- NOTE | 2023-09-20 22:44 | XR ---
EXAMINATION TYPE: XR ribs RT DATE OF EXAM: 09/19/2023 COMPARISON: 09/19/2023 chest x-ray HISTORY: Short of breath rib pain TECHNIQUE: Two-view right ribs FINDINGS: No acute displaced fractures are evident. No pneumothorax is evident on these images. IMPRESSION: 1. No acute osseous abnormality right ribs
== END | disposition home or self-care (01) ==
LOC: RADXRYALE 16:29
PROVIDERS: ATTEND Physician Assistant
DX: J44.9 Chronic obstructive pulmonary disease, unspecified (principal); S29.9XXA Unspecified injury of thorax, initial encounter; R06.02 Shortness of breath; R07.82 Intercostal pain; X58.XXXA Exposure to other specified factors, initial encounter
CPT/HCPCS: 71046